=== PATIENT | male | born 1955 | race Caucasian/White ===

== ENCOUNTER 2016-09-22 19:57 | Inpatient (IN) | payer OTHER ==
[~2016-09-22] VITALS: Ht 182.9 cm; Wt 98.8 kg
[~2016-09-22 19:57] MED LIST: ADVAIR 250/501 DISK IH; COMBIVENT RESPIM4 GM IH; FANATREX25 MG/1 ML PO; FLOMAX0.4 MG PO; GABAPENTIN300 MG PO; MOTRIN600 MG PO; PERCOCET 5/31 TABLET PO; REQUIP1 MG PO; SYNTHROID150 MCG PO; ZANTAC15 MG/ML PO; ZANTAC150 MG PO; ZOFRAN4 MG PO
[2016-09-22] MEDS ORDERED: ATORVASTATIN CA10 MG PO (20:30)
[2016-09-22 21:35] LABS: HEMATOCRIT 43.1 % (38.0-50.0); MCHC 34.1 G/DL (30.0-36.0); MCV 93.7 FL (86-99); MEAN PLAT.VOLUME 9.9 uM^3 (9.0-12.4); PLATELET COUNT 240 K/uL (156-360); RBC DIS.WIDTH-CV 13.4 % (11.8-14.6); RBC DIS.WIDTH-SD 45.9 % (39-53); WHITE BLOOD COUNT 12.9 K/uL (4.1-10.2)
[2016-09-22 21:45] LABS: CHLORIDE 111 mEq/L (99-109); POTASSIUM 4.9 mEq/L (3.7-5.4); SODIUM 141 mEq/L (136-147)
[2016-09-22 21:47] LABS: CHLORIDE 109 mEq/L (99-109); GLUCOSE 101 mg/dL (70-99); POTASSIUM 4.9 mEq/L (3.7-5.4); SODIUM 140 mEq/L (136-147)
[2016-09-22 21:48] LABS: MAGNESIUM 1.8 mg/dL (1.3-2.7)
[2016-09-22 21:49] LABS: ANION GAP 5 MEQ/L (2-14); GLUCOSE 99 mg/dL (70-99); TOTAL BILIRUBIN 0.3 mg/dL (0.0-1.0)
[2016-09-22 21:51] LABS: ALKALINE PHOSPHATASE 63 IU/L (3-129); ANION GAP 6 MEQ/L (2-14); GFR ESTIMATE (CALCULATED) > 59 mL/min/
[2016-09-22 21:52] LABS: UREA NITROGEN (BUN) 17 mg/dL (9-23)
[2016-09-22 21:53] LABS: GFR ESTIMATE (CALCULATED) > 59 mL/min/
[2016-09-22 21:54] LABS: UREA NITROGEN (BUN) 17 mg/dL (9-23)
[2016-09-22 21:55] LABS: CREATINE KINASE 123 IU/L (1-294); TOTAL CK 123 IU/L (1-294)
[2016-09-22 21:57] LABS: TROP-I INTERPRETATION NEGATIVE; TROPONIN-I < 0.01 ng/mL (0.0-0.30)
[2016-09-22 22:01] LABS: CK-MB 1.2 ng/mL (0.0-4.9)
[2016-09-22] MEDS ORDERED: REQUIP1 MG PO (22:35)
[2016-09-22] MEDS ORDERED: RANITIDINE HCL150 MG PO (22:35)
[2016-09-22] MEDS ORDERED: GABAPENTIN300 MG PO ×2 (22:36)
[2016-09-23 00:39] LABS: PROTHROMBIN TIME 11.5 SEC (10.2-12.9)
[2016-09-23 00:41] LABS: D-DIMER ELISA < 150.00 ng/mLDDU (<230)
[2016-09-23 00:42] LABS: PTT 30.2 SEC (25-37)
[2016-09-23 00:47] LABS: SERUM ETHYL ALCOHOL < 10 mg/dL
[2016-09-23 02:59] VITALS: BP 112/70
[2016-09-23 06:07] LABS: BASOPHIL COUNT 0.1 K/uL (0-0.1); EOSINOPHIL (%) 0.4 % (0-5); HEMATOCRIT 41.8 % (38.0-50.0); IMMATURE GRANULOCYTE (%) 0.3 % (0.0-0.7); INSTRUMENT ABS NEUTROPHIL CT 6.7 K/uL; LYMPHOCYTE COUNT 2.6 K/uL (1.0-2.8); MCH 32.7 PG (29.0-34.0); MCHC 34.7 G/DL (30.0-36.0); MCV 94.1 FL (86-99); MONOCYTE (%) 6.3 % (3-12); MONOCYTE COUNT 0.6 K/uL (0-0.8); NEUTROPHIL (%) 66.9 % (45-76); NEUTROPHIL COUNT 6.7 K/uL (1.8-6.4); PLATELET COUNT 240 K/uL (156-360); RBC DIS.WIDTH-CV 13.6 % (11.8-14.6); RBC DIS.WIDTH-SD 47.5 % (39-53); RED BLOOD COUNT 4.44 M/uL (4.00-5.50)
[2016-09-23 06:39] LABS: ALKALINE PHOSPHATASE 55 IU/L (3-129); ANION GAP 5 MEQ/L (2-14); CHLORIDE 109 MEQ/L (99-109); DIRECT BILIRUBIN 0.1 mg/dL (0.0-0.3); GFR ESTIMATE (CALCULATED) > 59 mL/min/; GLUCOSE 110 mg/dL (70-99); POTASSIUM 4.6 MEQ/L (3.7-5.4); SAMPLE HEMOLYSIS CHECK 0; SAMPLE ICTERIC CHECK 0; SAMPLE LIPEMIA CHECK 0; SODIUM 140 MEQ/L (136-147); TOTAL BILIRUBIN 0.5 MG/DL (0.0-1.0); UREA NITROGEN (BUN) 13 mg/dL (9-23)
[2016-09-23 06:57] LABS: TROP-I INTERPRETATION NEGATIVE; TROPONIN-I < 0.01 ng/mL (0.0-0.30)
[2016-09-23 10:00] VITALS: BP 144/70
[2016-09-23 11:45] VITALS: BP 127/65
[2016-09-23 13:13] LABS: TROP-I INTERPRETATION NEGATIVE; TROPONIN-I < 0.01 ng/mL (0.0-0.30)
[2016-09-23 17:38] LABS: ADD MIUA? NO; BILIRUBIN NEGATIVE; BLOOD NEGATIVE; COLOR STRAW ((YELLOW)); GLUCOSE (STRIP) NEGATIVE; KETONES NEGATIVE; LEUKOCYTES NEGATIVE; NITRITE NEGATIVE; PROTEIN (STRIP) NEGATIVE; SPECIFIC GRAVITY 1.038 (1.000-1.030); UCUL ADDED? NO; UROBILINOGEN 0.2 MG/DL (0.2-1.0)
[2016-09-23 18:01] LABS: AMPHETAMINES QUANT VALUE 0 NG/ML; BARBITUATES QUANT VALUE 0 NG/ML; BENZODIAZEPINES QUANT VALUE 0 NG/ML; BENZODIAZEPINES, URINE SCREEN Negative (200 ng/mL); OPIATES QUANTITATIVE VALUE 0 NG/ML; PHENCYCLIDINE QUANT VALUE 0 NG/ML
[2016-09-23 19:00] VITALS: BP 112/63
[2016-09-23 23:15] VITALS: BP 108/55
[2016-09-24 03:45] VITALS: BP 97/43
[2016-09-24 08:20] VITALS: BP 110/62
[2016-09-24 12:37] VITALS: BP 128/79
[2016-09-24 15:51] VITALS: BP 126/58
[2016-09-24 19:15] VITALS: BP 149/71
[2016-09-24 23:39] VITALS: BP 111/59
[2016-09-25 04:18] VITALS: BP 114/51
[2016-09-25 07:34] VITALS: BP 124/69
[2016-09-25 11:14] VITALS: BP 118/75
[2016-09-25] MEDS ORDERED: ELIQUIS5 MG PO (12:28)
== END 2016-09-25 14:50 | disposition home or self-care (01) | DRG 312 ==
LOC: EME → EDBD 19:57 → 5WEST 23:05 → EDOF 23:05 → ENRESERV 23:08 → 5WEST 09-23 02:47 → 4EAST 09-23 09:24 → ENRESERV 09-23 09:28 → 4EAST 09-23 11:41
PROVIDERS: Emergency Medicine; Hospitalist
DX: R55 Syncope and collapse (principal); R10.9 Unspecified abdominal pain; E03.9 Hypothyroidism, unspecified; F12.90 Cannabis use, unspecified, uncomplicated; E78.5 Hyperlipidemia, unspecified; F17.210 Nicotine dependence, cigarettes, uncomplicated; I10 Essential (primary) hypertension; E66.9 Obesity, unspecified; G93.89 Other specified disorders of brain; N20.1 Calculus of ureter; J44.9 Chronic obstructive pulmonary disease, unspecified; K21.9 Gastro-esophageal reflux disease without esophagitis; W19.XXXA Unspecified fall, initial encounter; I34.0 Nonrheumatic mitral (valve) insufficiency
CPT/HCPCS: 70450; 70498; 70551; 71020; 80048; 80053; 80076; 80306 90; 81003; 82550; 82553; 82607; 82746; 83735; 84439; 84443; 84484; 85025; 85027; 85379; 85610; 85730; 93005; 93306; 93312; 93880; 94640; 94640 76; 99281; 99285; C8923; G0378; G0480; J1650; J2250; J3010; J7030

== ENCOUNTER 2017-01-19 22:44 | Emergency (ER) | payer OTHER ==
[~2017-01-19] VITALS: Ht 188 cm; Wt 95.6 kg
[~2017-01-19 22:44] MED LIST changes: +ATORVASTATIN CA10 MG PO; +ELIQUIS5 MG PO; +RANITIDINE HCL150 MG PO
[2017-01-20] MEDS ORDERED: SKELAXIN800 MG PO (02:44)
[2017-01-20] MEDS ORDERED: PERCOCET 5/31 TABLET PO (02:44)
[2017-01-20] MEDS ORDERED: COLACE100 MG PO (02:44)
[2017-01-20 03:01] VITALS: BP 121/79
== END 2017-01-20 03:05 | disposition home or self-care (01) ==
LOC: EME 22:44 → EXP 22:44
DX: S30.0XXA Contusion of lower back and pelvis, initial encounter (principal); W10.9XXA Fall (on) (from) unspecified stairs and steps, initial encounter; M51.34 Other intervertebral disc degeneration, thoracic region; M51.36 Other intervertebral disc degeneration, lumbar region; M25.78 Osteophyte, vertebrae; F17.200 Nicotine dependence, unspecified, uncomplicated
CPT/HCPCS: 72070; 72128; 72131; 99281; 99284; J3010